=== PATIENT | female | born 1965 | race Caucasian/White ===

== ENCOUNTER 2018-11-25 09:12 | Emergency (ER) | payer SELFPAY ==
[2018-11-25 10:30] LABS: BASO # 0.1 K/uL (0.0-0.2); BASO % 1.1 % (0.0-2.0); EOS # 0.2 K/uL (0.0-0.7); EOS % 4.5 % (0.0-4.0); LYMPH # 2.3 K/uL (1.0-4.3); LYMPH % 46.2 % (20.0-40.0); MEAN CELL VOLUME 87.1 fL (81.0-99.0); MEAN CORPUSCULAR HEMOGLOBIN 28.7 pg (27.0-31.0); MEAN CORPUSCULAR HGB CONC 32.9 g/dL (33.0-37.0); MEAN PLATELET VOLUME 10.8 fL (7.2-11.7); MONO # 0.3 K/uL (0.0-0.8); NEUT % 41.2 % (50.0-75.0); NRBC % 0.1 % (0.0-2.0); RBC 4.54 Mil/uL (3.80-5.20); RED CELL DISTRIBUTION WIDTH 13.2 % (11.5-14.5); WHITE BLOOD COUNT 4.9 K/uL (4.8-10.8)
[2018-11-25 10:37] LABS: SQUAMOUS EPITHIAL 5 /hpf (0-5); URINE BILIRUBIN NEGATIVE (NEGATIVE); URINE BLOOD 2+ (NEGATIVE); URINE CLARITY Clear (Clear); URINE COLOR Yellow (YELLOW); URINE GLUCOSE (UA) NORMAL (Normal); URINE LEUKOCYTE ESTERASE NEG Leu/uL (Negative); URINE PROTEIN NEGATIVE (NEGATIVE); URINE UROBILINOGEN NORMAL mg/dL (0.2-1.0)
[2018-11-25 10:45] LABS: ALB/GLOB RATIO 1.6 (1.0-2.1); ALBUMIN 4.6 g/dL (3.5-5.0); ALT/SGPT 26 U/L (9-52); AST/SGOT 32 U/L (14-36); BLOOD UREA NITROGEN 16 mg/dL (7-17); CALCIUM 9.6 mg/dl (8.6-10.4); GFR NON-AFRICAN AMERICAN > 60; LIPASE 130 U/L (23-300)
--- NOTE | 2018-11-25 12:01 | US ---
Date of service: 11/25/2018 HISTORY: RUQ ultrasound. Complaint: abd pain COMPARISON: None. TECHNIQUE: Sonographic evaluation of the right upper quadrant of the abdomen. FINDINGS: LIVER: Measures 14.0 cm in length. Normal echogenicity of the liver parenchyma. Normal directional blood flow is seen at the main portal and hepatic veins. No mass. No intrahepatic bile duct dilatation. GALLBLADDER: Moderate mural thickening of the gallbladder is appreciate with only mild to moderate distension. No cholelithiasis or pericholecystic fluid collection or reported sonographic Hoover's sign. COMMON BILE DUCT: Measures 5.0 mm. No stones. No dilatation. PANCREAS: The tail of the pancreas is obscured by overlying bowel gas with remainder unremarkable. RIGHT KIDNEY: Measures 9.2 cm in length. Normal echogenicity. No calculus, mass, or hydronephrosis. AORTA: No aneurysmal dilatation. IVC: Unremarkable. OTHER FINDINGS: None . IMPRESSION: No biliary tree dilatation demonstrated. Gallbladder is mild to mildly distended with moderate mural thickening but no pericholecystic fluid collection, cholelithiasis or reported sonographic Hoover sign. Partial imaging of the pancreas. Negative appearing right kidney
[2018-11-25 12:49] VITALS: BP 149/91; PULSE 68; RESP 18; TEMP 97.5; O2SAT 100
--- NOTE | 2018-11-25 12:57 | CT ---
Date of service: 11/25/2018 PROCEDURE: CT Abdomen and Pelvis without intravenous contrast HISTORY: abd pain;hematuria;left flank pain;r/o kidn stone COMPARISON: None. TECHNIQUE: Helical CT of the abdomen and pelvis was performed without oral or intravenous contrast as per referring physician request. Coronal and sagittal reformats were generated. Radiation dose: Total exam DLP = 807.13 mGy-cm. This CT exam was performed using one or more of the following dose reduction techniques: Automated exposure control, adjustment of the mA and/or kV according to patient size, and/or use of iterative reconstruction technique. FINDINGS: LOWER THORAX: Borderline cardiomegaly. Lung bases otherwise unremarkable as imaged. LIVER: Unremarkable. No gross lesion or ductal dilatation. GALLBLADDER AND BILE DUCTS: Unremarkable. PANCREAS: Unremarkable. No gross lesion or ductal dilatation. SPLEEN: Unremarkable. ADRENALS: Unremarkable. No mass. KIDNEYS AND URETERS: There is borderline fullness of the right renal pelvocaliceal system but no hydroureter or radiodense urolithiasis bilaterally including both ureters and the urinary bladder. Consider potential expelled obstructing agent from right ureter and urinary bladder potentially. No perinephric reaction bilaterally or fluid collection. Left kidney appears unremarkable. VASCULATURE: Unremarkable. No aortic aneurysm. No aortic atherosclerotic calcification or mural plaque present. BOWEL: Retained food and a bit of air mildly distend the stomach which is otherwise limited evaluation. No bowel obstruction appreciated. Left colonic diverticular changes are identified at the descending through proximal sigmoid segments which are nonacute. Moderate retained fecal material is seen at the right hemicolon with minimal residual at the left. APPENDIX: Small appendecolith is identified at the proximal appendix. No acute appendiceal findings. PERITONEUM: Unremarkable. No free fluid. No free air. LYMPH NODES: Unremarkable. No enlarged lymph nodes. BLADDER: Unremarkable. REPRODUCTIVE: Unremarkable. BONES: No acute fracture. OTHER FINDINGS: None. IMPRESSION: 1. Limited fullness is appreciate the right renal pelvocaliceal system potentially reflecting residual from prior obstructive uropathy though no secondary signs are appreciated surrounding the right kidney or right ureter. No radiodense urolithiasis bilaterally including right ureter and urinary bladder. 2. Left colonic diverticular changes, nonacute. 3. A small appendecolith is identified within otherwise normal-appearing appendix.
--- NOTE | 2018-11-25 13:06 | C.PDOC ---
History Of Present Illness 53 y/o female pt with PSHx of hysterectomy presents to the ER c/o mid epigastric abdominal pain for x2 weeks. Pain is worse after eating and movement and radiates to the back. Pain is 5/10. Pt also c/o upper and lower back pain for 8- 9 years. Pt notes Advil helps relief the pain a little bit. PMD is Dr. Mejia. Time Seen by Provider: 11/25/18 09:35 Chief Complaint (Nursing): Back Pain History Per: Patient History/Exam Limitations: no limitations Onset/Duration Of Symptoms: Days (x2 weeks) Current Symptoms Are (Timing): Still Present Past Medical History Reviewed: Historical Data, Nursing Documentation, Vital Signs Vital Signs: Last Vital Signs Temp 97.5 F L 11/25/18 12:49 Pulse 68 11/25/18 12:49 Resp 18 11/25/18 12:49 BP 149/91 H 11/25/18 12:49 Pulse Ox 100 11/25/18 12:49 - Medical History PMH: HTN Family History: States: No Known Family Hx - Social History Hx Alcohol Use: No Hx Substance Use: No Review Of Systems Except As Marked, All Systems Reviewed And Found Negative. Gastrointestinal: Positive for: Abdominal Pain (mid epigastric ) Musculoskeletal: Positive for: Back Pain (radiated frommid epigastric abdominal pain) Physical Exam - Physical Exam Appears: Non-toxic, No Acute Distress Skin: Warm, Dry Head: Normacephalic Cardiovascular: Rhythm Regular Respiratory: Normal Breath Sounds Gastrointestinal/Abdominal: Soft, Tenderness (mild epigastric and RUQ ) Back: CVA Tenderness (mid left) Neurological/Psych: Oriented x3, Normal Speech, Normal Cognition, Normal Motor, Normal Sensation ED Course And Treatment - Laboratory Results Result Diagrams: 11/25/18 10:21 11/25/18 10:21 Lab Results: Total Bilirubin 0.7 mg/dL (0.2-1.3) 11/25/18 10:21 AST 32 U/L (14-36) 11/25/18 10:21 ALT 26 U/L (9-52) 11/25/18 10:21 Alkaline Phosphatase 70 U/L (38-126) 11/25/18 10:21 Total Protein 7.5 g/dL (6.3-8.3) 11/25/18 10:21 Albumin 4.6 g/dL (3.5-5.0) 11/25/18 10:21 Globulin 2.9 gm/dL (2.2-3.9) 11/25/18 10:21 Albumin/Globulin Ratio 1.6 (1.0-2.1) 11/25/18 10:21 Lipase 130 U/L (23-300) 11/25/18 10:21 Urine Color Yellow (YELLOW) 11/25/18 10:21 Urine Clarity Clear (Clear) 11/25/18 10:21 Urine pH 5.0 (5.0-8.0) 11/25/18 10:21 Ur Specific [place] 1.014 (1.003-1.030) 11/25/18 10:21 Urine Protein Negative mg/dL (NEGATIVE) 11/25/18 10:21 Urine Glucose (UA) Normal mg/dL (Normal) 11/25/18 10:21 Urine Ketones Negative mg/dL (NEGATIVE) 11/25/18 10:21 Urine Blood 2+ (NEGATIVE) H 11/25/18 10:21 Urine Nitrate Negative (NEGATIVE) 11/25/18 10:21 Urine Bilirubin Negative (NEGATIVE) 11/25/18 10:21 Urine Urobilinogen Normal mg/dL (0.2-1.0) 11/25/18 10:21 Ur Leukocyte Esterase Neg Ian/uL (Negative) 11/25/18 10:21 Urine WBC (Auto) 1 /hpf (0-5) 11/25/18 10:21 Urine RBC (Auto) 12 /hpf (0-3) H 11/25/18 10:21 Ur Squamous Epith Cells 5 /hpf (0-5) 11/25/18 10:21 O2 Sat by Pulse Oximetry: 100 (RA) Pulse Ox Interpretation: Normal - CT Scan/US Abdominal US Other Rad Studies (CT/US): Read By Radiologist, Radiology Report Reviewed CT/US Interpretation: Accession No. : [id number]. Patient Name / ID : REILLY BHAKTA / [id number]. Exam Date : 11/25/2018 09:53:18 ( Approved ). Study Comment : Sex / Age : F / 53Y. Creator : Dev Lovelace MD. Dictator : Dev Lovelace MD. Civil Engineering Professor : Supervisor Chlorine Liquefaction : Dev Lovleace MD. Approver2 : Report Date : 11/25/2018 11:57:45. My Comment : . Date of service: 11/25/2018. HISTORY: RUQ ultrasound. Complaint: abd pain. COMPARISON: None. TECHNIQUE: Sonographic evaluation of the right upper quadrant of the abdomen. FINDINGS: LIVER: Measures 14.0 cm in length. Normal echogenicity of the liver parenchyma. Normal directional blood flow is seen at the main portal and hepatic veins. No mass. No intrahepatic bile duct dilatation. GALLBLADDER: Moderate mural thickening of the gallbladder is appreciate with only mild to moderate distension. No cholelithiasis or pericholecystic fluid collection or reported sonographic Hoover's sign. COMMON BILE DUCT: Measures 5.0 mm. No stones. No dilatation. PANCREAS: The tail of the pancreas is obscured by overlying bowel gas with remainder unremarkable. RIGHT KIDNEY: Measures 9.2 cm in length. Normal echogenicity. No calculus, mass, or hydronephrosis. AORTA: No aneurysmal dilatation. IVC: Unremarkable. OTHER FINDINGS: None . IMPRESSION: No biliary tree dilatation demonstrated. Gallbladder is mild to mildly distended with moderate mural thickening but no pericholecystic fluid collection, cholelithiasis or reported sonographic Hoover sign. Partial imaging of the pancreas. Negative appearing right kidney Abdomen CT Other Rad Studies (CT/US): Read By Radiologist, Radiology Report Reviewed CT/US Interpretation: Accession No. : [id number]. Patient Name / ID : REILLY BHAKTA / [id number]. Exam Date : 11/25/2018 12:00:13 ( Approved ). Study Comment : Sex / Age : F / 53Y. Creator : Suraj Lovett. Dictator : Dev Lovelace MD. Civil Engineering Professor : Supervisor Chlorine Liquefaction : Dev Lovelace MD. Approver2 : Report Date : 11/25/2018 12:06:27. My Comment : . Date of service: 11/25/2018. PROCEDURE: CT Abdomen and Pelvis without intravenous contrast. HISTORY: abd pain;hematuria;left flank pain;r/o kidn stone. COMPARISON: None. TECHNIQUE: Helical CT of the abdomen and pelvis was performed without oral or intravenous contrast as per referring physician request. Coronal and sagittal reformats were generated. Radiation dose: Total exam DLP = 807.13 mGy-cm. This CT exam was performed using one or more of the following dose reduction techniques: Automated exposure control, adjustment of the mA and/or kV according to patient size, and/or use of iterative reconstruction technique. FINDINGS: LOWER THORAX: Borderline cardi omegaly. Lung bases otherwise unremarkable as imaged. LIVER: Unremarkable. No gross lesion or ductal dilatation. GALLBLADDER AND BILE DUCTS: Unremarkable. PANCREAS: Unremarkable. No gross lesion or ductal dilatation. SPLEEN: Unremarkable. ADRENALS: Unremarkable. No mass. KIDNEYS AND URETERS: There is borderline fullness of the right renal pelvocaliceal system but no hydroureter or radiodense urolithiasis bilaterally including both ureters and the urinary bladder. Consider potential expelled obstructing agent from right ureter and urinary bladder potentially. No perinephric reaction bilaterally or fluid collection. Left kidney appears unremarkable. VASCULATURE: Unremarkable. No aortic aneurysm. No aortic atherosclerotic calcification or mural plaque present. BOWEL: Retained food and a bit of air mildly distend the stomach which is otherwise limited evaluation. No bowel obstruction appreciated. Left colonic diverticular changes are identified at the descending through proximal sigmoid segments which are nonacute. Moderate retained fecal material is seen at the right hemicolon with minimal residual at the left. APPENDIX: Small appendecolith is identified at the proximal appendix. No acute appendiceal findings. PERITONEUM: Unremarkable. No free fluid. No free air. LYMPH NODES: Unremarkable. No enlarged lymph nodes. BLADDER: Unremarkable. REPRODUCTIVE: Unremarkable. BONES: No acute fracture. OTHER FINDINGS: None. IMPRESSION: 1. Limited fullness is appreciate the right renal pelvocaliceal system potentially reflecting residual from prior obstructive uropathy though no secondary signs are appreciated surrounding the right kidney or right ureter. No radiodense urolithiasis bilaterally including right ureter and urinary bladder. 2. Left colonic diverticular changes, nonacute. 3. A small appendecolith is identified within otherwise normal-appearing appendix. Medical Decision Making Medical Decision Making: Initial impression: possible gallbladder disease, possible peptic ulcer disease Initial plan: -- will check labs and imaging Disposition Counseled Patient/Family Regarding: Studies Performed, Diagnosis, Need For Followup, Rx Given - Disposition Referrals: [facility] [Outside] Disposition: HOME/ ROUTINE Disposition Time: 13:15 Condition: IMPROVED Additional Instructions: Ms. Thorne, thank you for letting us take care of you today. Return to the ER if your symptoms worsen, or if any problems. Take the medication listed below as prescribed. It is important for you to follow up with the doctor. Please call the phone number listed below to make an appointment at our [facility]. Prescriptions: Acetaminophen [Tylenol] 1 tab PO Q6 PRN #60 capsule PRN Reason: Pain, Moderate (4-7) hydroCHLOROthiazide [Hydrodiuril] 1 tab PO DAILY #30 tab Ranitidine HCl [Zantac] 1 tab PO BID #60 tablet Instructions: Peptic Ulcers (DC), High Blood Pressure in Adults, Upper Back Pain, Low Back Pain in Adults Forms: [employer] (Korean) Print Language: SERBIAN - POA Present On Arrival: None - Clinical Impression Clinical Impression: High blood pressure, Peptic ulcer disease, Back pain - Scribe Statement The provider has reviewed the documentation as recorded by the Indu Valerio Do Provider Attestation: All medical record entries made by the Codyibe were at my direction and personally dictated by me. I have reviewed the chart and agree that the record accurately reflects my personal performance of the history, physical exam, medical decision making, and the department course for this patient. I have also personally directed, reviewed, and agree with the discharge instructions and disposition.
== END 2018-11-25 13:34 | disposition home or self-care (01) ==
LOC: C.ER 09:12
DX: K27.9 Peptic ulcer, site unspecified, unspecified as acute or chronic, without hemorrhage or perforation (principal); M54.9 Dorsalgia, unspecified; I10 Essential (primary) hypertension
CPT/HCPCS: 74176; 76705; 80053; 81001; 83690; 85025; 96374; 96375; 99283; J1885